=== PATIENT | female | born 1955 | race Caucasian/White ===

== ENCOUNTER → 2020-07-17 14:02 | Outpatient (BNVA) | payer OTHER, SELFPAY | PROVIDERS: PCP Internal Medicine; Visit Provider Surgery | DX: Z85.3 Personal history of malignant neoplasm of breast (principal) | CPT/HCPCS: 99214 ==

== ENCOUNTER 2020-08-11 14:44 | Outpatient (REF) | payer OTHER, SELFPAY ==
--- NOTE | 2020-08-11 14:50 | MM_ITS ---
EXAMINATION: MM SCREENING DIGITAL BREAST TOMOSYNTHESIS, BILATERAL CLINICAL INFORMATION: Right lumpectomy for breast cancer 2013. Due for yearly. COMPARISON: Mammography: 07/26/2019, 07/26/2018, 07/21/2017 TECHNIQUE: Digital breast tomosynthesis is performed in both the craniocaudal and mediolateral oblique views along with computer-aided detection (CAD). Synthesized 2D images are generated from the tomosynthesis. FINDINGS: There are scattered areas of fibroglandular density (ACR BI-RADS breast composition Category b). Parenchymal pattern is similar to prior studies. There are post therapy changes again seen on the right with mild reduced breast size and stable scarring. Again, there is benign bulky dystrophic calcification within the scar 12:00 position. Neither breast shows developing density or interval mass or architectural abnormality or abnormal calcifications. There are no significant changes. MM/MM tomosynthesis screening BI IMPRESSION: No significant changes from prior studies. Post therapy changes on the right. ASSESSMENT: BI-RADS 2: Benign RECOMMENDATION: Routine annual mammography screening. This patient's information was entered into a reminder system with a target due date for their next mammogram.
== END 2020-08-11 14:45 | disposition home or self-care (01) ==
LOC: HO.MAMMO 14:44
PROVIDERS: Visit Provider Internal Medicine Medical Oncology
DX: Z12.31 Encounter for screening mammogram for malignant neoplasm of breast (principal)
CPT/HCPCS: 77063; 77067

== ENCOUNTER 2020-09-21 21:09 | Emergency (ER) | payer OTHER, SELFPAY ==
[2020-09-21 21:34] VITALS: PULSE 16; RESP 88; O2SAT 98; BMI 32.3
--- NOTE | 2020-09-21 21:37 | ED_ITS ---
HPI - General Adult General Chief complaint: Upper Respiratory Symptoms Stated complaint: cough Time Seen by Provider: 09/21/20 21:20 Source: patient Mode of arrival: ambulatory History of Present Illness HPI narrative: This is a 64-year-old female who presents with concerns regarding COVID-19 exposure after her brother visited her on Tuesday and then was subsequently found to be COVID-19 positive. Patient states that she has a dry cough but denies any sore throat, fevers, chills, body aches, but states she is primarily concerned about the exposure given her underlying health conditions. Related Data Home Medications Medication Instructions Recorded Confirmed albuterol sulfate 90 mcg/actuation 2 puff INHALATION Q6H PRN 07/17/20 aerosol inhaler amlodipine 5 mg tablet 5 mg PO DAILY 07/17/20 atorvastatin 40 mg tablet 40 mg PO BEDTIME 07/17/20 cetirizine 10 mg tablet 10 mg PO DAILY 07/17/20 cholecalciferol (vitamin D3) 25 25 mcg PO DAILY 07/17/20 mcg (1,000 unit) capsule clonazepam 0.5 mg tablet 0.5 mg PO DAILY 07/17/20 fluticasone propionate 110 1 puff INHALATION BID 07/17/20 mcg/actuation HFA aerosol inhaler furosemide 20 mg tablet 10 mg PO QAM 07/17/20 letrozole 2.5 mg tablet 2.5 mg PO DAILY 07/17/20 oxcarbazepine 150 mg tablet 150 mg PO DAILY 07/17/20 zolpidem 10 mg tablet 10 mg PO BEDTIME PRN 07/17/20 Allergies Allergy/AdvReac Type Severity Reaction Status Date / Time No Known Allergies Allergy Unverified 06/12/20 16:04 [No Known Allergies*] hydrochlorothiazide Allergy Unknown oral Uncoded 10/30/19 00:00 swelling Review of Systems Review of Systems: Pertinent positives and negatives as stated in HPI and 10 point review of systems is otherwise negative. [facility] Past Medical History Source: nursing notes reviewed Medical History Asthma History of right breast cancer Hypercholesterolemia Hypertension Social History Social History Advance Directives: No Physical Exam Vital Signs: Vital Signs: Last Vital Signs Pulse 16 L 09/21/20 21:34 Resp 88 H 12/27/20 21:34 Pulse Ox 98 09/21/20 21:34 Body Mass Index 32.3 VITAL SIGNS: Reviewed. GENERAL: Well developed, well nourished, in no acute distress. HEAD: Normocephalic/atraumatic, EYES: PERRLA, EOMI intact without pain EARS: Ext canals without abnormality, TMs non-bulging and non-erythematous NOSE: Nares patent bilateral OROPHARYNX: no oral lesions noted, posterior pharynx clear NECK: Supple, no adenopathy LUNGS: Normal breath sounds. No adventitious sounds or accessory muscle use. SpO2<98> CARDIOVASCULAR: Regular rate and rhythm without noted murmurs, no JVD or lower extremity edema. ABDOMEN: Soft, non-tender, non-distended with bowel sounds. No rigidity. No guarding. No palpable masses or hernias noted Course Course Course Narrative: This is a 64-year-old female with history and clinical present patient consistent with COVID-19 exposure and minimal symptoms at this time. Patient is not noted to be febrile, hypoxic, tachypneic. She will be COVID-19 swabbed and then has already been instructed to self quarantine until she is called with the results. She does further endorse that she was COVID-19 tested approximately 1 month ago was found to be negative. Discharge Plan Discharge Clinical Impression: Close exposure to COVID-19 virus Patient Disposition: Home, Self-Care Instructions: COVID-19 (Coronavirus Disease 2019) (ED) Additional Instructions: 1. You have been tested for COVID-19 today and must remain self quarantine as per [facility] guidelines until the results of your testing are called to you. 2. Resume all home medications as prescribed. 3. Please do not hesitate to return to the emergency department should you experience shortness of breath on exertion, fevers that are not responding to Tylenol or ibuprofen. Prescriptions: No Action clonazepam 0.5 mg tablet 0.5 mg PO DAILY RF: 0 zolpidem 10 mg tablet 10 mg PO BEDTIME PRNRF: 0 albuterol sulfate 90 mcg/actuation HFA aerosol inhaler 2 puff inhalation Q6H PRNRF: 0 Flovent HFA 110 mcg/actuation HFA aerosol inhaler 1 puff inhalation BID RF: 0 oxcarbazepine 150 mg tablet 150 mg PO DAILY RF: 0 cetirizine 10 mg tablet 10 mg PO DAILY RF: 0 letrozole 2.5 mg tablet 2.5 mg PO DAILY RF: 0 atorvastatin 40 mg tablet 40 mg PO BEDTIME RF: 0 amlodipine 5 mg tablet 5 mg PO DAILY RF: 0 furosemide 20 mg tablet 10 mg PO QAM RF: 0 cholecalciferol (vitamin D3) 25 mcg (1,000 unit) capsule 25 mcg PO DAILY RF: 0 Referrals: Physician,Unknown [Primary Care Provider] - 2 days (Re-evaluation after testing for COVID-19 due to exposure) Print Language: French
== END 2020-09-21 21:55 | disposition home or self-care (01) ==
PROVIDERS: Emergency Provider Student in an Organized Health Care Education/Training Program
DX: R05 Cough (principal); Z79.899 Other long term (current) drug therapy; Z20.828 Contact with and (suspected) exposure to other viral communicable diseases
CPT/HCPCS: 99283; U0003

== ENCOUNTER → 2021-04-15 12:43 | Outpatient (BNV) | payer OTHER, SELFPAY | PROVIDERS: Visit Provider Internal Medicine | DX: Z85.3 Personal history of malignant neoplasm of breast (principal) | CPT/HCPCS: 99213; 99214 ==

== ENCOUNTER → 2021-04-16 11:28 | Outpatient (BNVA) | payer OTHER, SELFPAY | PROVIDERS: PCP Nurse Practitioner Family; Referring Provider Nurse Practitioner Family; Visit Provider Surgery | DX: Z85.3 Personal history of malignant neoplasm of breast (principal) | CPT/HCPCS: 99212 ==

== ENCOUNTER 2021-10-01 15:41 | Outpatient (REF) | payer OTHER, SELFPAY ==
--- NOTE | ~2021-10-01 | MM_ITS ---
EXAMINATION: MM SCREENING DIGITAL BREAST TOMOSYNTHESIS, BILATERAL CLINICAL INFORMATION: Screening. Asymptomatic. Previous right breast lumpectomy. COMPARISON: Mammography: August 11, 2020 and studies dating back to February 01, 2012 TECHNIQUE: Digital breast tomosynthesis is performed in both the craniocaudal and mediolateral oblique views along with computer-aided detection (CAD). Synthesized 2D images are generated from the tomosynthesis. FINDINGS: There are scattered areas of fibroglandular density (ACR BI-RADS breast composition Category b). There are no significant masses, abnormal calcifications, or other abnormalities. Postsurgical change again seen within the right breast. MM/MM tomosynthesis screening BI IMPRESSION: There are no significant changes from prior study. ASSESSMENT: BI-RADS 2: Benign RECOMMENDATION: Routine annual mammography screening. This patient's information was entered into a reminder system with a target due date for their next mammogram.
== END 2021-10-01 15:42 | disposition home or self-care (01) ==
LOC: HO.MAMMO 15:41
PROVIDERS: PCP Registered Nurse Community Health; Visit Provider Internal Medicine
DX: Z12.31 Encounter for screening mammogram for malignant neoplasm of breast (principal)
CPT/HCPCS: 77063; 77067

== ENCOUNTER 2021-12-23 13:51 | Outpatient (REF) | payer OTHER, SELFPAY ==
--- NOTE | ~2021-12-23 | MM_ITS ---
EXAMINATION: BONE DENSITOMETRY CLINICAL INDICATION: Osteopenia. COMPARISON: Previous BD dated 07/26/2019 and baseline BD dated 02/28/2015. TECHNIQUE: Using a [employer] DXA System (software version: 13.1) manufactured by [employer], dual-energy x-ray absorptiometry was performed of the lumbar spine and left hip. The images are of good technical quality. Summary results are attached. FINDINGS: AP SPINE L1-L4: Current: BMD 0.985 g/cm2, Z-score -0.8, T-score -1.6, osteopenia, 2.4% increase from previous, 0.3% decrease from baseline (<5% change is not significant). Prior: BMD 0.962 g/cm2. Baseline: BMD 0.988 g/cm2. LEFT FEMUR, NECK: Current: BMD 0.940 g/cm2, Z-score 0.2, T-score -0.7, normal. Prior: BMD 0.910 g/cm2. Baseline: BMD 1.073 g/cm2. LEFT FEMUR, TOTAL: Current: BMD 1.077 g/cm2, Z-score 1.2, T-score 0.5, normal, 3.5% increase from previous, 9.3% decrease from baseline (<5% change is not significant). Prior: BMD 1.041 g/cm2. Baseline: BMD 1.187 g/cm2. IDENTIFIED RISK FACTORS: Menopause. HISTORY OF FRACTURE: None listed. MEDICATIONS: Vitamin D. MM/XR DEXA axial skeleton IMPRESSION: 1. DIAGNOSIS: Osteopenia based on the lowest T-score value of -1.6 in the lumbar spine applying World Health Organization criteria. 2. 10-YEAR FRACTURE RISK PREDICTION, FRAX: Major osteoporotic fracture (clinical spine, forearm, hip or shoulder) 3.7%. Hip fracture 0.2%. 3. Treatment Recommendations: NOF guidelines recommend consideration for treatment in postmenopausal women and men age 50 and older presenting with the following: -A hip or vertebral (clinical or morphometric) fracture. -T-score less than or equal to -2.5 at the femoral neck or spine after appropriate evaluation to exclude secondary causes. -Low bone mass at the hip or spine and a 10-year fracture probability by FRAX of greater than or equal to 3% for hip fracture or greater than or equal to 20% for major osteoporotic fracture based on the [place] adapted WHO algorithm. 4. Other Recommendations: All treatment decisions require clinical judgment and consideration of individual patient factors, including patient preferences, comorbidities, previous drug use, risk factors not captured in the FRAX model (e.g. frailty, falls, vitamin D deficiency, increased bone turnover, interval significant decline in bone density) and possible under or overestimation of fracture risk by FRAX. Additional medical evaluation for secondary cause of low bone mineral density may be appropriate. FUTURE SCAN RECOMMENDATION: People with diagnosed cases of osteoporosis or at high risk for fracture should have regular bone mineral density tests. For patients eligible for Medicare, routine testing is allowed once every 2 years. The testing frequency can be increased to one year for patients who have rapidly progressing disease, those who are receiving or discontinuing medical therapy to restore bone mass, or have additional risk factors.
== END 2021-12-23 13:52 | disposition home or self-care (01) ==
LOC: HO.MAMMO 13:51
PROVIDERS: Visit Provider Registered Nurse Community Health
DX: Z13.820 Encounter for screening for osteoporosis (principal); M85.80 Other specified disorders of bone density and structure, unspecified site; Z78.0 Asymptomatic menopausal state
CPT/HCPCS: 77080

== ENCOUNTER → 2022-01-05 15:23 | Outpatient (BNVA) | payer OTHER, SELFPAY | PROVIDERS: PCP Registered Nurse Community Health; Referring Provider Registered Nurse Community Health; Visit Provider Surgery | DX: Z85.3 Personal history of malignant neoplasm of breast (principal) | CPT/HCPCS: 99212 ==

== ENCOUNTER 2022-12-31 13:56 | Outpatient (REF) | payer OTHER, SELFPAY ==
--- NOTE | ~2022-12-31 | MM_ITS ---
EXAMINATION: MM SCREENING DIGITAL BREAST TOMOSYNTHESIS, BILATERAL CLINICAL INFORMATION: Screening. Asymptomatic. Right breast IDC status post lumpectomy, 2013. COMPARISON: Mammography: 10/01/2021, 08/11/2020, 07/26/2019, 07/26/2018 TECHNIQUE: Digital breast tomosynthesis is performed in both the craniocaudal and mediolateral oblique views along with computer-aided detection (CAD). Synthesized 2D images are generated from the tomosynthesis. FINDINGS: There are scattered areas of fibroglandular density (ACR BI-RADS breast composition Category b). There are post therapy changes right breast with mild reduced breast size and stable scarring. There is benign dystrophic calcification in the scar right breast. Parenchymal pattern is similar to prior studies and there is no developing density or architectural abnormality or interval mass or abnormal calcifications. The axilla are unremarkable. There are no significant changes from prior studies. MM/MM tomosynthesis screening BI IMPRESSION: -No mammographic evidence of malignancy. -Post therapy changes right breast. ASSESSMENT: BI-RADS 2: Benign RECOMMENDATION: Routine annual mammography screening. This patient's information was entered into a reminder system with a target due date for their next mammogram.
== END 2022-12-31 13:57 | disposition home or self-care (01) ==
LOC: HO.MAMMO 13:56
PROVIDERS: Visit Provider Registered Nurse Community Health
DX: Z12.31 Encounter for screening mammogram for malignant neoplasm of breast (principal)
CPT/HCPCS: 77063; 77067

== ENCOUNTER → 2023-02-24 14:30 | Outpatient (BNVA) | payer OTHER, SELFPAY | PROVIDERS: PCP Registered Nurse Community Health; Referring Provider Registered Nurse Community Health; Visit Provider Surgery | DX: Z85.3 Personal history of malignant neoplasm of breast (principal) | CPT/HCPCS: 99212 ==

== ENCOUNTER 2023-06-10 15:48 | Outpatient (REF) | payer OTHER, SELFPAY ==
[2023-06-11 04:02] LABS: HBc Num1 0.15 S/CO (0.00-0.79); HBsAGNum1 0.28 S/CO (0.00-0.99); Hepatitis A Antibody IgM 0.17 Index (0-0.79); Hepatitis B Core Antibody Nonreactive (Nonreactive); Hepatitis B Surface Antigen Negative (Negative); ~HepC Num1 0.23 S/CO (0.00-0.79); ~Hepatitis A Antibody IgM Nonreactive (Nonreactive); ~Hepatitis B Surface Antibody NONREACTIVE (Nonreactive); ~Hepatitis C Antibody Nonreactive (Nonreactive)
== END 2023-06-10 15:49 | disposition home or self-care (01) ==
LOC: HO.HHCL 15:48
PROVIDERS: Visit Provider Registered Nurse
DX: Z11.3 Encounter for screening for infections with a predominantly sexual mode of transmission (principal)
CPT/HCPCS: 36415; 86704; 86706; 86709; 86803; 87340

== ENCOUNTER → 2024-02-09 12:45 | Outpatient (BNV) | payer OTHER, SELFPAY | PROVIDERS: PCP Internal Medicine; Visit Provider Radiology Diagnostic Radiology | DX: Z12.31 Encounter for screening mammogram for malignant neoplasm of breast (principal) | CPT/HCPCS: 77063; 77067 ==

== ENCOUNTER 2024-02-09 13:00 | Outpatient (REF) | payer OTHER, SELFPAY ==
--- NOTE | ~2024-02-09 | MM_ITS ---
EXAMINATION: MM SCREENING DIGITAL BREAST TOMOSYNTHESIS, BILATERAL CLINICAL INFORMATION: Screening. Asymptomatic. The patient is status post surgery for right breast cancer in 2013 . COMPARISON: Mammography: This study is compared with prior exams dating back to 2019. TECHNIQUE: Digital breast tomosynthesis is performed in both the craniocaudal and mediolateral oblique views along with computer-aided detection (CAD). Synthesized 2D images are generated from the tomosynthesis. FINDINGS: There are scattered areas of fibroglandular density (ACR BI-RADS breast composition Category b). There are no significant masses, abnormal calcifications, or other abnormalities. There are postsurgical changes in the upper outer quadrant of the right breast from prior cancer surgery. There are associated benign calcifications in the surgical bed. MM/MM tomosynthesis screening BI IMPRESSION: No mammographic evidence of malignancy. ASSESSMENT: BI-RADS BI-RADS 2 - Benign Findings RECOMMENDATION: Routine annual mammography screening. 1 year F/U This examination should not preclude the clinical evaluation of a suspicious palpable abnormality. This patient's information was entered into a reminder system with a target due date for their next mammogram.
== END 2024-02-09 13:01 | disposition home or self-care (01) ==
LOC: HO.MAMMO 13:00
PROVIDERS: PCP Internal Medicine; Visit Provider Internal Medicine
DX: Z12.31 Encounter for screening mammogram for malignant neoplasm of breast (principal)
CPT/HCPCS: 77063; 77067

== ENCOUNTER 2024-03-01 14:47 | Outpatient (AMB) | payer OTHER, SELFPAY ==
--- NOTE | 2024-03-01 14:49 | MHC.OFFVIS ---
Vital Signs 03/01/24 14:57 Height 4 ft 11 in Weight 186 lb BMI 37.6 BP 162/74 H Blood Pressure Location Lt brachial Position Sitting Pulse 58 Intake Visit Reasons: yearly breast exam Intake Note: Patient is seen in office for yearly breast. Pt c/o: denies any concerns regarding her breast mm: 02/09/24 Biological Scientist Required: No Aquatic Performer: Aquatic Performer Present Accompanied by: Self / Same As Patient Allergies hydrochlorothiazide Allergy (Verified 02/24/23 14:36) oral swelling Medication List - Last Reconciled 03/01/24 by Timbo Cam MD albuterol sulfate 90 mcg/actuation 2 puffs inhalation Q6H PRN amlodipine 5 mg PO DAILY atorvastatin 40 mg PO BEDTIME cetirizine 10 mg PO DAILY cholecalciferol (vitamin D3) 25 mcg PO DAILY clonazepam 0.5 mg PO DAILY fluticasone propionate 110 mcg/actuation (Flovent HFA) 1 puff inhalation BID furosemide 10 mg PO QAM oxcarbazepine 150 mg PO DAILY zolpidem 10 mg PO BEDTIME PRN HPI Comments Details: 68-year-old female patient, previous patient of Dr. Culver/Demetrius returning for a follow-up breast examination. She was initially evaluated for abnormal breast imaging on 07/08/2014 with follow-up images obtained 07/15/2014 which revealed a suspicious lesion in the right breast felt to require a biopsy the (BI-RADS 4). A stereotactic guided core biopsy was performed on 07/22/2014 which revealed a moderately differentiated ductal carcinoma, ER/FL positive, HER2 Jaleel negative. She underwent a right breast needle localized lumpectomy with sentinel node biopsy on 08/26/2014. Pathology revealed a 0.6 cm infiltrating ductal carcinoma with negative margins. [place] lymph node was negative, pT1b pN0 (i-) (sn). Oncotype DX: intermediate recurrence score of 24, 16% 10 year recurrence risk with tamoxifen alone. She was evaluated by Dr. Bauer and decided to proceed with chemotherapy. She then underwent radiation therapy which was completed on 02/12/2015. She was then started on letrozole in 2014. Her most recent mammogram of her most recent mammogram of 02/09/2024 revealed no mammographic evidence of malignancy (BI-RADS 2). Routine annual mammography screening was recommended. She generally feels well and denies any new breast symptoms on either side. [facility] Medical History Asthma Hypercholesterolemia Hypertension History of right breast cancer Surgical History History of cholecystectomy History of delivery History of tubal ligation History of lumpectomy of right breast Social History Household Members: Children Housing: House Alcohol intake: former Patient Tobacco Use Status: Never used Tobacco service: No Current occupational status: retired and disabled Female Reproductive History Menstrual Age of Menarche: 13 Review of Systems Const All systems reviewed & are unremarkable except as noted in HPI and below Denies anorexia, Denies chills and Denies fever(s) Card Denies chest pain, Denies irregular heart rhythm, Denies palpitations and Denies dyspnea Resp Denies cough, Denies hemoptysis and Denies dyspnea Denies nipple discharge Skin/Breast Denies breast swelling, Denies breast skin changes, Denies breast pain, Denies breast mass, Denies change in breast shape, Denies change in pigmentation and Denies nipple discharge Endo Denies palpitations Gray/Lymph Denies lymphadenopathy Physical Exam Vital Signs: Last Vital Signs Pulse 58 03/01/24 14:57 BP 162/74 H 03/01/24 14:57 BMI result Body Mass Index 37.6 Const General: cooperative and no acute distress Nutritional Appearance: well nourished Orientation/consciousness: patient oriented x3 Neck Lymphatic: no lymphadenopathy noted Chest Other: Right breast, incision in the upper outer quadrant is clean, dry, and intact. No new skin change, nipple retraction, nipple discharge, or enlarged lymph nodes appreciated. Left breast: No skin change, nipple retraction, nipple discharge, or enlarged lymph nodes identified. Chest/axillae images: 1. Incision upper outer quadrant Resp Effort & Inspection: normal respiratory effort, no audible wheezes, no cough, no stridor and not tachypneic Skin General skin exam: no rashes or lesions noted Neuro General: patient oriented x3 Extrem General: Yes no clubbing, cyanosis or edema Assessment & Plan Assessment & Plan (1) Invasive ductal carcinoma of right breast: Code(s): C50.911 - Malignant neoplasm of unspecified site of right female breast Category: Medical (2) History of right breast cancer: Code(s): Z85.3 - Personal history of malignant neoplasm of breast Category: Medical Plan 68-year-old female patient returning for routine breast examination after right breast surgery in 2013 for invasive ductal carcinoma. She continues to do well and denies any ongoing symptoms. Examination today reveals no suspicious findings in either breast to indicate recurrence disease. Her last mammogram in 02/09/2024 revealed no suspicious findings (BI-RADS 2). She will return in 1 year for follow-up breast examination after her annual mammogram. She is welcome to call sooner for any new concerns. Coding Level of Care Code Est Pt Level 3 (64450) Diagnoses Invasive ductal carcinoma of right breast C50.911 History of right breast cancer Z85.3
[2024-03-01 14:57] VITALS: BP 162/74; PULSE 58; BMI 37.6
== END 2024-03-01 15:07 | disposition home or self-care (01) ==
PROVIDERS: PCP Internal Medicine; Visit Provider Surgery
DX: Z85.3 Personal history of malignant neoplasm of breast (principal)
CPT/HCPCS: 99213

== ENCOUNTER → 2024-03-01 14:47 | Outpatient (BNVA) | payer OTHER, SELFPAY | PROVIDERS: PCP Internal Medicine; Visit Provider Surgery | DX: C50.911 Malignant neoplasm of unspecified site of right female breast (principal); Z85.3 Personal history of malignant neoplasm of breast | CPT/HCPCS: 99212 ==

== ENCOUNTER 2024-10-05 14:53 | Outpatient (REF) | payer OTHER, SELFPAY ==
[2024-10-05 16:05] LABS: MANUAL DIFF FLAG NO
[2024-10-05 16:10] LABS: Basophils Percent Auto 0.4 % (0-2); Eosinophils Absolute Auto 0.2 X10*3/uL (0.0-0.4); Eosinophils Percent Auto 1.8 % (0-4); Hematocrit 44.6 % (37.0-47.0); Hemoglobin 14.9 g/dl (12.0-16.0); Imm Gran Abs Auto 0.04 X10*3/uL (0.00-0.03); Imm Gran Pct Auto 0.4 % (0.0-0.4); Lymphocytes Percent Auto 31.1 % (20-40); Mean Corpuscular HGB Conc 33.4 g/dl (31.0-35.0); Mean Corpuscular Hemoglobin 26.3 pg (27.0-33.0); Mean Corpuscular Volume 78.8 fL (80.0-98.0); Mean Platelet Volume 12.1 fL (9.4-12.3); Monocytes Absolute Auto 0.8 X10*3/uL (0.1-1.2); Monocytes Percent Auto 8.6 % (2-11); Neutrophils Absolute Auto 5.5 x10*3/uL (2.0-8.3); Neutrophils Percent Auto 57.7 % (45-73); Platelet Count 159 X10*3/uL (160-400); Red Blood Count 5.66 X10*6/uL (4.20-5.50); Red Cell Distribution Width 13.9 % (11.0-16.0); White Blood Count 9.5 X10*3/uL (4.8-10.8)
[2024-10-05 16:23] LABS: Estimated Average Glucose 126 mg/dL; Hemoglobin A1C 161.9127 umol/L; Total Hemoglobin (HGBA1C) 3838.4211 umol/L
[2024-10-05 16:29] LABS: Alanine Aminotransferase 17 U/L (0-31); Albumin Level 4.1 g/dL (3.5-5.0); Alkaline Phosphatase 93 U/L (39-117); Anion Gap 13 (12-20); Aspartate Amino Transferase 24 U/L (5-31); Bilirubin Total 0.3 mg/dL (0.0-1.0); Blood Urea Nitrogen 14 mg/dL (9-16); Calcium 9.4 mg/dL (8.4-10.2); Carbon Dioxide 25 mmol/L (22-29); Chloride 107 mmol/L (96-108); Cholesterol 243 mg/dL (<200); Estimated Glomerular Filt Rate > 60; Glucose Random 88 mg/dL (60-115); HDL Cholesterol 43 mg/dL (>40); LDL Cholesterol Calculated 141 mg/dL (<100); Potassium 4.2 mmol/L (3.3-5.1); Sodium 141 mmol/L (135-145); Total Protein 8.1 g/dL (6.5-8.0); Triglycerides 298 mg/dL (<150)
[2024-10-05 16:50] LABS: Vitamin D 25-OH Total 46.5 ng/mL (>30)
== END 2024-10-05 14:54 | disposition home or self-care (01) ==
LOC: HO.HHCL 14:53
PROVIDERS: Visit Provider Internal Medicine
DX: E66.812 Obesity, class 2 (principal); Z68.38 Body mass index [BMI] 38.0-38.9, adult; E66.01 Morbid (severe) obesity due to excess calories
CPT/HCPCS: 36415; 80053; 80061; 82306; 83036; 84443; 85025